=== PATIENT | female | born 1950 | race Two or more races ===

== ENCOUNTER 2017-08-13 20:20 | Emergency (ER) | payer MEDICARE, MEDICAID ==
[~2017-08-13] VITALS: Ht 165.1 cm; Wt 68.0 kg
[~2017-08-13 20:20] MED LIST: IBUPROFEN600 MG ORAL
[2017-08-13] MEDS ORDERED: fentaNYL 100 mcg/2 mL IV ONE ×2 (20:45→21:15)
[2017-08-13 21:30] VITALS: BP 130/70
[2017-08-13 22:39] LABS: APPEARANCE,URINE CLEAR; BILIRUBIN, URINE NEGATIVE (NEGATIVE); COLOR,URINE PALE YELLOW; GLUCOSE, URINE (UA) NEGATIVE (NEGATIVE); KETONES,URINE NEGATIVE (NEGATIVE); LEUKOCYTE ESTERASE ,URINE NEGATIVE (NEGATIVE); NITRITE,URINE NEGATIVE (NEGATIVE); PH,URINE 7 (4.5-8.0); PROTEIN,URINE NEGATIVE (NEGATIVE); UROBILINOGEN,URINE NORMAL MG/DL (0.0-1.0)
--- NOTE | 2017-08-13 22:55 | Emergency Room Report ---
History of Present Illness General Chief Complaint: Back Pain-No Injury Source: Patient Present Illness HPI The patient presents with severe upper R sided back pain. She feels it when R arm is down, then relief somewhat when the arm is raised. Has had in past. No fevers, cough, NVD, gall bladder problems. No calf pain, swelling, hemoptysis. She has not taken any medication. Pain is severe and radiates somewhat lower in back on R side. Pain rated 10/10. No abdominal pain, NVD, dysuria, stones, BCP or smoking. H/O HTN and DM. Prior adverse reaction to morphine with nausea. Allergies: Coded Allergies: Kiwi (Verified Allergy, Unknown, 08/13/17) Uncoded Allergies: KIWI (Allergy, Mild, Rash, 12/07/15) SOB Patient History Past Medical History: see triage record Social History: Denies: smoking Social History Narrative with family translating Reviewed Nursing Documentation: PMH: Agreed; PSxH: Agreed Nursing Documentation-PMH Past Medical History: No History, Except For Hx Hypertension: Yes - high cholesterol Hx Diabetes: Yes Review of Systems All Other Systems: negative except mentioned in HPI Physical Exam Vital Signs Date Time Temp Pulse Resp B/P (MAP) Pulse Ox O2 Delivery O2 Flow Rate FiO2 08/13/17 20:40 97.4 77 18 125/67 96 Room Air 97.3 Sp02 EP Interpretation: reviewed, normal General Appearance: well appearing, mild distress Head: normocephalic, atraumatic Eyes: bilateral eye normal inspection, bilateral eye PERRL ENT: hearing grossly normal, normal voice, moist mucus membranes Neck: full range of motion, supple Respiratory: lungs clear, normal breath sounds, no respiratory distress, speaking full sentences, other - trapezius M tenderness R Cardiovascular #1: normal peripheral pulses, regular rate, rhythm Cardiovascular #2: 2+ radial (R) Gastrointestinal: normal inspection, normal bowel sounds Genitourinary: no CVA tenderness Musculoskeletal: digits/nails normal, normal range of motion, no calf tenderness Neurologic: alert, oriented x3, motor strength/tone normal, sensory intact Psychiatric: anxious Skin: no rash Medical Decision Making Diagnostic Impression: Primary Impression: Muscle spasm ER Course Patient presents with R upper back pain. DDX: muscle spasm, PNA, UTI, PE amongst others. Based of VS and history PE not likely. Evaluation with CXR. Treatment with analgesia. Pain is not consistent with cardiac cause. CXR - no infiltrates. Improved after treatment. Asking about urine. UA ordered. UA clear. Patient stable for outpatient observation and treatment. Laboratory Tests Test 08/13/17 21:30 Urine Color Pale yellow Urine Appearance Clear Urine pH 7 (4.5-8.0) Urine Specific [place] 1.005 (1.005-1.035) Urine Protein Negative (NEGATIVE) Urine Glucose (UA) Negative (NEGATIVE) Urine Ketones Negative (NEGATIVE) Urine Occult Blood Negative (NEGATIVE) Urine Nitrite Negative (NEGATIVE) Urine Bilirubin Negative (NEGATIVE) Urine Urobilinogen Normal MG/DL (0.0-1.0) Urine Leukocyte Esterase Negative (NEGATIVE) Rhythm Strip Diag. Results EP Interpretation: yes Rhythm: NSR, no PVC's, no ectopy Chest X-Ray Diagnostic Results Chest X-Ray Diagnostic Results : Chest X-Ray Ordered: Yes # of Views/Limited/Complete: 1 View Indication: Other EP Interpretation: Yes Interpretation: no consolidation, no effusion, no pneumothorax Impression: No acute disease Electronically Signed by: Electronically signed by Gabe Saravia MD Last Vital Signs Date Time Temp Pulse Resp B/P (MAP) Pulse Ox O2 Delivery O2 Flow Rate FiO2 08/13/17 21:30 97.8 78 18 130/70 96 Room Air 97.8 Status: improved Disposition: HOME, SELF-CARE Condition: Improved Scripts Lidocaine (Lidoderm) 1 Each Adh..patch 1 PATCH TOPIC DAILY, #7 PATCH 0 Refills Patch(es) may remain in place for up to 12 hours in any 24-hour period. Prov: Gabe Saravia M.D. 08/13/17 Methocarbamol* (ROBAXIN*) 500 Mg Tablet 500 MG PO TID PRN for spasms, #10 TAB 0 Refills Prov: Gabe Saravia M.D. 08/13/17 Tramadol Hcl* (ULTRAM*) 50 Mg Tablet 50 MG ORAL Q6H PRN for For Pain, #8 TAB 0 Refills Prov: Gabe Saravia M.D. 08/13/17 Gabe Saravia M.D. August 13, 2017 22:55
[2017-08-13] MEDS ORDERED: LIDODERM700 M1 TOPIC (22:58)
[2017-08-13] MEDS ORDERED: TRAMADOL HCL50 MG ORAL (22:58)
[2017-08-13] MEDS ORDERED: ROBAXIN500 MG PO (22:58)
[2017-08-13 23:05] VITALS: BP 128/78
--- NOTE | 2017-08-14 09:25 | Diagnostic Imaging Report ---
Indication: Chest pain Comparison: None A single view chest radiograph was obtained. Findings: Cardiomediastinal appearance is within normal limits for age. Pulmonary vascularity is appropriate. The diaphragmatic contour is smooth and costophrenic angles are sharp. No pleural effusions are identified. The bones are unremarkable. Impression: No acute findings
== END 2017-08-13 23:10 | disposition home or self-care (01) ==
LOC: EMR 20:50
DX: M62.830 Muscle spasm of back (principal); M54.6 Pain in thoracic spine; I10 Essential (primary) hypertension; E11.9 Type 2 diabetes mellitus without complications
CPT/HCPCS: 71045; 81003; 96374; 99284; J3010